=== PATIENT | female | born 1985 | race Caucasian/White ===

== ENCOUNTER 2020-05-01 01:04 | Emergency (ER) | payer OTHER ==
[2020-05-01] MEDS ORDERED: Take Home: predniSONE 20 MG, 2 Tab Pack PO ONE (01:24)
[2020-05-01] MEDS ORDERED: Ketorolac 30 MG/ML SDV IM ONE (01:24)
[2020-05-01] MEDS ORDERED: Orphenadrine 60 MG/2 ML Inj IM STA (01:24)
--- NOTE | 2020-05-01 01:29 | EDM.PDOC ---
[facility] GENERAL MEDICAL PROBLEM - General Chief Complaint: Lower Extremity Injury/Pain Stated Complaint: lower extremity pain Time Seen by Provider: 05/01/20 01:10 Source of Information: Reports: Patient History Limitations: Reports: No Limitations - History of Present Illness INITIAL COMMENTS - FREE TEXT/NARRATIVE: Patient comes emergency department today with complaints of a shooting pain down her right leg. Starting earlier this afternoon she has an intermittent shooting pain that starts in the very mid posterior aspect of her right lower extremity just below the gluteal fold that shoots down to her foot. The pain causes some tingling as well at the same time. This pain/tingling comes and goes especially with physical activity or movement. She is able to get in a position of comfort. There is times when she has no pain. She has no loss of functionality or sensation in her right lower extremity. No recent falls trauma. She denies any back pain. She never had anything like this before. She was recently diagnosed with Covid on Monday. She has no chest pain no shortness of breath or difficulty breathing. No cough or congestion. No fever no chills at this time. NO control. Not a smoker no recent long stents of sedentary position no long car rides or other travel. NO history of clots. - Related Data Home Meds: Home Meds predniSONE [Prednisone] 40 mg PO DAILY 4 Days #8 tablet 05/01/20 [Rx] Review of Systems - Review of Systems Review Of Systems: Comprehensive ROS is negative, except as noted in HPI. ED EXAM, GENERAL - Physical Exam Exam: See Below Exam Limited By: No Limitations General Appearance: Alert, WD/WN, No Apparent Distress Head: Atraumatic, Normocephalic Neck: Normal Inspection, Supple, Non-Tender, Full Range of Motion Respiratory/Chest: No Respiratory Distress, Lungs Clear, Normal Breath Sounds, No Accessory Muscle Use, Chest Non-Tender Cardiovascular: Normal Peripheral Pulses, Regular Rate, Rhythm Peripheral Pulses: 2+: Radial (L), Radial (R), Popliteal (L), Popliteal (R), Posterior Tibial (L), Posterior Tibial (R), Dorsalis Pedis (L), Dorsalis Pedis (R) GI/Abdominal: Normal Bowel Sounds, Soft, Non-Tender (Female) Exam: Deferred Rectal (Female) Exam: Deferred Back Exam: Normal Inspection, Full Range of Motion. No: CVA Tenderness (L), CVA Tenderness (R), Decreased Range of Motion, Muscle Spasm, Paraspinal Tenderness, Vertebral Tenderness Extremities: Normal Inspection, Normal Range of Motion, Non-Tender, Normal Capillary Refill, Other (There is no rash sores lesions or signs of trauma to the right lower extremity. Negative straight leg raise bilaterally. ) Neurological: Alert, Oriented, Normal Cognition, Normal Gait, Normal Reflexes, No Motor/Sensory Deficits, Other (RHomberg negative Able to walk in toes and heals. Stable normal gaily. DTRs 2+ equal bilaterally. ). No: Abnormal Gait, Abnormal Reflexes Psychiatric: Normal Affect Skin Exam: Warm, Dry, Intact, Normal Color Lymphatic: No Adenopathy Course - Re-Assessments/Exams Free Text/Narrative Re-Assessment/Exam: 05/01/20 01:36 This is really the presentation of sciatica type pain especially with the intermittent aspect of it and her ability to get into this position of comfort. Vicki the normal course of the disease with this patient as well as some exercises that she can complete at home. We will give her some Toradol and Norflex in the emergency department have her start her prednisone in the morning. Do these exercises 3-4 times a day over the next couple of days. She is not improving in the next week recheck with primary care and consider self referral to physical therapy. She is comfortable with this plan and her questions are answered. Her exam and history is absolutely inconsistent with the presence of a DVT and her only risk factor is COVID although the story and physical does not concern me for a DVT. 05/01/20 01:37 Departure - Departure Time of Disposition: 01:25 Disposition: Home, Self-Care 01 Clinical Impression: Sciatica of right side without back pain - Discharge Information Instructions: Sciatica, [id number], Pain Medicine Instructions, [id number], Sciatica Rehab-SportsMed Additional Instructions: Tylenol and or Ibuprofen as needed for pain. See the discharge instructions for exercises to help with the symptoms. Tylenol and or Ibuprofen as needed for pain. Prednisone 40mg daily for the next 5 days. Morning dose sent home with you. Rx sent to [facility] for the rest. Return to the ED if new or worsening symptoms. Follow up with PCP in the next week if not improving sooner if worse. Consider a self referral to Physical therapy as well.
== END 2020-05-01 02:05 | disposition home or self-care (01) ==
LOC: VM.ED 01:04
DX: M54.31 Sciatica, right side (principal)
CPT/HCPCS: 96372; 99283; J1885; J2360; J7512